=== PATIENT | male | born 1940 | race Caucasian/White ===

== ENCOUNTER → 2016-05-07 | Outpatient (CLI) | payer MEDICARE ==
[~2016-05-07] MED LIST: AMLO10TA4 PO; BENA40TA PO; BENA40TA3 PO; FINA5TAB42 PO; LORA0.5T2 PO; OMEP40CA52 PO; PRAV40TA3 PO; SUCR1ORA3 PO; TAMS0.4C20 PO; TRIA15OI2 TOP
--- NOTE | 2016-05-07 08:54 | DI ---
Indication: ITS.REASON: R10.11 RUQ ABD PAIN PROCEDURE: US GALLBLADDER: Encounter: Initial Comparison: Gallbladder ultrasound dated August 28, 2015 Technique: Grayscale and color Doppler sonographic imaging of the right upper quadrant of the abdomen was performed. Findings: Tiny subcentimeter cyst in the liver. Hepatic parenchyma is otherwise homogeneous without evidence for focal mass. The gallbladder is normal. There is no wall thickening, pericholecystic fluid, sonographic De L Acruz's sign or cholelithiasis. Both the intra and extrahepatic biliary system are of normal caliber with the common duct measuring 4 mm in dimension. Visualized portions of the head and body of the pancreas are unremarkable. The right kidney is present without collecting system dilatation. The right kidney measures 10.1 cm in length. Impression: Negative right upper quadrant sonogram. .
== END ==
LOC: IMA 07:40
PROVIDERS: ATTEND Family Medicine
DX: R10.11 Right upper quadrant pain (principal)

== ENCOUNTER → 2016-05-16 | Outpatient (CLI) | payer MEDICARE ==
[~2016-05-16] MED LIST changes: +SALINE FLUSH 10ml SYRINGE ONE; +SINCALIDE 5 MCG/VIAL IJ ONE; +SODIUM CHLORIDE (Bacteriostatic) 30ml VIAL ONE
--- NOTE | 2016-05-16 10:18 | DI ---
Indication: ITS.REASON: R10.11 RUQ ABD PAIN PROCEDURE: NM HEPATOBIL/EF: Encounter: Initial Comparison: Gallbladder ultrasound dated May 07, 2016 and nuclear medicine hepatobiliary scan dated August 31, 2015 Technique: 6.3 mCi of Tc-99m mebrofenin was injected intravenously. At approximately 61 minutes following this administration, 1.5 mcg of Kinevac was administered intravenously. Anterior planar images were obtained and a time/activity curve was calculated. FINDINGS: Radiotracer uptake is seen homogenously within the liver. There is normal clearance of radiotracer from the blood pool. The common bile duct is visualized at approximately 10 minutes. The gallbladder is visualized by 27 minutes, and radiotracer is excreted into the small bowel. There is no evidence of radiotracer outside the biliary or gastrointestinal tract. The gallbladder ejection fraction is decreased at 15%. IMPRESSION: 1. Gallbladder visualization excluding acute cholecystitis. 2. Decreased gallbladder ejection fraction of 15%, consistent with biliary dyskinesia. .
== END ==
LOC: IMA 07:51
PROVIDERS: ATTEND Family Medicine
DX: K82.8 Other specified diseases of gallbladder (principal); R10.11 Right upper quadrant pain
CPT/HCPCS: 78227; A9537; J2805